=== PATIENT | male | born 1965 | race Caucasian/White ===

== ENCOUNTER 2019-07-29 06:22 | Emergency (ER) | payer OTHER ==
[~2019-07-29] VITALS: Ht 175.3 cm; Wt 77.1 kg
[~2019-07-29 06:22] MED LIST: ATEN25 PO
[2019-07-29] MEDS ORDERED: Amlodipine Besy10 MG PO (07:07)
[2019-07-29] MEDS ORDERED: LOSARTAN POTASS50 MG PO (07:07)
[2019-07-29] MEDS ORDERED: Percocet 5-3251 EACH PO ×2 (12:03→13:43)
[2019-07-29] MEDS ORDERED: CYCL10 PO ×2 (12:03→13:43)
[2019-07-29] MEDS ORDERED: Colace100 MG PO ×2 (12:03→13:43)
== END 2019-07-29 12:43 | disposition home or self-care (01) ==
LOC: ER 06:22
DX: S32.019A Unspecified fracture of first lumbar vertebra, initial encounter for closed fracture (principal); K59.00 Constipation, unspecified; I10 Essential (primary) hypertension; F17.210 Nicotine dependence, cigarettes, uncomplicated; Z79.899 Other long term (current) drug therapy; X50.0XXA Overexertion from strenuous movement or load, initial encounter
CPT/HCPCS: 72100; 72148; 74022; 99284-25; J1100